=== PATIENT | female | born 1975 | race African-American/Black ===

== ENCOUNTER 2017-08-03 08:48 | Emergency (ER) | payer BC ==
[~2017-08-03] VITALS: Ht 154.9 cm; Wt 108.9 kg
[2017-08-03] MEDS ORDERED: KETOROLAC TROMETHAMINE 30 MG/ML VIAL IV STA (09:19)
[2017-08-03] MEDS ORDERED: SODIUM CHLORIDE 0.9% 1000ML 1,000 ML IV SCH (09:30)
[2017-08-03] MEDS ORDERED: ONDANSETRON HCL INJ 2 MG/ML VIAL IV STA (09:30)
[2017-08-03 11:17] VITALS: BP 127/67
[2017-08-03] MEDS ORDERED: METOPROLOL SUCC50 MG PO (11:27)
[2017-08-03] MEDS ORDERED: MAXALT5 MG (11:28)
[2017-08-03] MEDS ORDERED: IMITREX25 MG (11:28)
[2017-08-03] MEDS ORDERED: BUSPIRONE HCL5 MG PO (11:29)
[2017-08-03] MEDS ORDERED: FLUOXETINE HCL20 M1 (11:30)
[2017-08-03] MEDS ORDERED: AMLODIPINE BESYL5 MG PO (11:31)
== END 2017-08-03 11:20 | disposition home or self-care (01) ==
LOC: FSED 08:48
DX: G43.019 Migraine without aura, intractable, without status migrainosus (principal); I10 Essential (primary) hypertension
CPT/HCPCS: 99283; J1885; J2405